=== PATIENT | male | born 1990 | race African-American/Black ===

== ENCOUNTER 2020-12-20 17:53 | Inpatient (IN) | payer MEDICAID ==
[~2020-12-20] VITALS: Ht 182.9 cm; Wt 72.6 kg
[2020-12-20] MEDS ORDERED: IV NS 0.9% 1,000 ML BAG IV ONE (18:30)
[2020-12-20 18:58] LABS: BASOPHILS % (AUTO) 0.2 % (0.0-2.0); EOSINOPHILS % (AUTO) 0.1 % (0.0-6.0); HEMATOCRIT 51 % (39-51); HEMOGLOBIN 16.5 g/dL (13.5-17.5); LYMPHOCYTES # (AUTO) 0.6 /CMM (0.8-4.8); MEAN CORPUSCULAR HGB CONC 32 g/dl (31.0-36.0); MEAN CORPUSCULAR VOLUME 84 fL (80-96); MONOCYTES # (AUTO) 1.3 /CMM (0.1-1.30); MONOCYTES % (AUTO) 6.8 % (2.0-12.0); NEUTROPHILS # (AUTO) 17.6 /CMM (1.8-8.9); NEUTROPHILS % (AUTO) 89.9 % (43.0-81.0); PLATELET COUNT (AUTO) 353 /CMM (150-450); RED BLOOD CELL COUNT(AUTO) 6.06 MIL/uL (4.5-6.0); WHITE BLOOD COUNT (AUTO) 19.6 K/uL (4.3-11.0)
[2020-12-20] MEDS ORDERED: INSU100V37 SQ (19:02)
[2020-12-20] MEDS ORDERED: INSU100V11 SQ (19:02)
[2020-12-20 19:24] LABS: BILIRUBIN,URINE NEGATIVE (NEGATIVE); COLOR,URINE YELLOW (YELLOW); LEUKOCYTE ESTERASE ,URINE NEGATIVE (NEGATIVE); NITRITE, URINE NEGATIVE (NEGATIVE); PH,URINE 5.5 (5.0-8.0); PROTEIN,URINE 30 mg/dl (NEGATIVE); UGLUCOSE 500 MG/DL mg/dL (NEGATIVE); UROBILINOGEN,URINE 0.2 EU/dL (0.2)
[2020-12-20 19:30] LABS: CALCIUM, SERUM 10.2 mg/dL (8.5-10.1); POTASSIUM 5.5 mmol/L (3.5-5.1)
[2020-12-20 19:35] LABS: BACTERIA,URINE B /HPF (None Seen); SQUAMOUS EPITHELIAL CELL,UR 0-2 /HPF (None Seen); WBC,URINE 0-2 /HPF (0-3)
[2020-12-20 19:36] LABS: ALBUMIN 5.1 g/dL (3.4-5.0); BILIRUBIN,DIRECT 0.2 mg/dL (0.0-0.2); BILIRUBIN,TOTAL 0.6 mg/dL (0.2-1.0); TOTAL PROTEIN, SERUM 9.7 g/dL (6.4-8.2)
--- NOTE | 2020-12-20 19:49 | NUR ---
ER TALKING TO DR. FORD REGARDING PT ADMISSION.
[2020-12-20 19:55] LABS: BAND % (MANUAL) 4 % (0.0-5.0); LYMPHOCYTES % (MANUAL) 8 % (16-48); MONOCYTES % (MANUAL) 11 % (0-11.0); NEUTROPHILS % (MANUAL) 76 (42-76); REACTIVE LYMPHOCYTES 1 % (0-0)
[2020-12-20] MEDS ORDERED: INSULIN REGULAR, HUMAN 100 UNIT/ML 10 ML VIAL SQ ONE (20:00)
[2020-12-20] MEDS ORDERED: INSULIN REGULAR, HUMAN 100 UNIT/ML 10 ML VIAL ONE (20:07)
--- NOTE | 2020-12-20 20:14 | NUR ---
Jose torre in [facility] - 12/20/20 at 2030 by PHILLIP TELE [id number]
--- NOTE | 2020-12-20 20:30 | NUR ---
TELE 315-2
--- NOTE | 2020-12-20 20:44 | NUR ---
REPORT CALLED TO LANDSCAPE TECHNICIAN MYRA. WILL TRANSPORT PT VIA ACLS PROTOCOL TO ROOM 315-2
--- NOTE | 2020-12-20 21:10 | NUR ---
pt transported to unit on [facility] with emt and rn at bedside w/ acls protocol. nad noted during transport. pt ambulated to bed from [facility]
[2020-12-20 21:15] VITALS: BP 155/67
--- NOTE | 2020-12-20 22:15 | NUR ---
RN NOTES [place] ARRIVED TO UNIT VIA GURNEY PT ABLE TO STAND UP AND WALK TO BED PT HAS STEADY GAIT. PT ALERT AND ORIENTED X4 NO PAIN OF DISCOMFORT VISIBLE OR REPORTED AT THIS TIME. PT ON ROOM AIR TOLERATING WELL. PT IS WARM AND DRY TO THE TOUCH NO SIGNS OF DISCOLORATION VISIBLE. PT ORIENTED TO ROOM AND UNIT. ALL PT NEEDS MET AT THIS TIME WILL CONTINUE TO MONITOR. SFAETY MEASURES FOLLOWED AT ALL TIMES.
[2020-12-20] MEDS ORDERED: Z GUARD REMEDY 2 OZ OINT TP PRN (22:30)
[2020-12-20] MEDS ORDERED: HYDROCODONE/APAP 5/325MG TABLET PO PRN (22:30)
[2020-12-20] MEDS ORDERED: MAGNESIUM HYDROXIDE 30 ML UDC PO PRN (22:30)
[2020-12-20] MEDS ORDERED: ZOLPIDEM TARTRATE 5 MG TABLET PO PRN (22:30)
[2020-12-20] MEDS ORDERED: INSULIN DEGLUDEC 20 UNIT SQ SCH (22:30)
[2020-12-20] MEDS ORDERED: ONDANSETRON HCL/PF 4 MG/2 ML VIAL IVP PRN (22:30)
[2020-12-20] MEDS ORDERED: ACETAMINOPHEN 325 MG TABLET PO PRN (22:30)
[2020-12-20] MEDS ORDERED: MAG HYDROX/AL HYDROX/SIMETH 30 ML UDC PO PRN (22:30)
[2020-12-20] MEDS: IV NS 0.9% 1,000 ML IV PRN (22:36)
[2020-12-21] VITALS: BP 132/70
[2020-12-21] MEDS ORDERED: INSULIN GLARGINE, 100 UNIT/ML CARTRIDGE SQ SCH (01:30)
[2020-12-21] MEDS ORDERED: DEXTROSE 50%-WATER 50 ML DISP.SYRIN IV PRN (02:00)
[2020-12-21 04:00] VITALS: BP 111/55
[2020-12-21] MEDS: BLOOD SUGAR DIAGNOSTIC 1 EACH STRIP IN SCH ×5 (05:04→21:21)
[2020-12-21] MEDS: INSULIN REGULAR, HUMAN 100 UNIT/ML 3 ML VIAL SQ PRN ×2 (05:07→12:19)
--- NOTE | 2020-12-21 06:37 | NUR ---
RN NOTES PT ALERT AND ORIENTED X4 NO PAIN OF DISCOMFORT VISIBLE OR REPORTED AT THIS TIME. PT ON ROOM AIR TOLERATING WELL. PT IS WARM AND DRY TO THE TOUCH NO SIGNS OF DISCOLORATION VISIBLE. PT ORIENTED TO ROOM AND UNIT. ALL PT NEEDS MET AT THIS TIME WILL ENDORSE CARE TO DAY SHIFT. SAFETY MEASURES FOLLOWED AT ALL TIMES.
[2020-12-21 07:07] LABS: BASOPHILS # (AUTO) 0.1 /CMM (0.0-0.2); BASOPHILS % (AUTO) 0.5 % (0.0-2.0); HEMATOCRIT 45 % (39-51); HEMOGLOBIN 15.4 g/dL (13.5-17.5); LYMPHOCYTES # (AUTO) 1.1 /CMM (0.8-4.8); LYMPHOCYTES % (AUTO) 6.9 % (20.0-44.0); MEAN CORPUSCULAR HGB CONC 34 g/dl (31.0-36.0); MEAN CORPUSCULAR VOLUME 82 fL (80-96); MONOCYTES # (AUTO) 1.8 /CMM (0.1-1.30); NEUTROPHILS # (AUTO) 13.4 /CMM (1.8-8.9); NEUTROPHILS % (AUTO) 81.6 % (43.0-81.0); PLATELET COUNT (AUTO) 307 /CMM (150-450); RED BLOOD CELL COUNT(AUTO) 5.52 MIL/uL (4.5-6.0); WHITE BLOOD COUNT (AUTO) 16.5 K/uL (4.3-11.0)
[2020-12-21] MEDS: PANTOPRAZOLE 40 MG TABLET.DR PO SCH (07:30)
[2020-12-21 07:43] LABS: THYROID STIMULATING HORMONE 0.039 uIU/mL (0.358-3.74)
[2020-12-21] MEDS: IV NS 0.9% 1,000 ML IV PRN ×2 (07:51→21:44)
[2020-12-21 07:55] LABS: CALCIUM, SERUM 9.4 mg/dL (8.5-10.1); CREATININE 1.5 mg/dL (0.6-1.3); MAGNESIUM 2.7 mg/dL (1.8-2.4); PHOSPHORUS 4.3 mg/dL (2.5-4.9); POTASSIUM 4.6 mmol/L (3.5-5.1)
[2020-12-21 08:00] VITALS: BP 131/76
[2020-12-21] MEDS: INSULIN GLARGINE, 100 UNIT/ML CARTRIDGE SQ SCH ×2 (09:28→21:45)
[2020-12-21 12:00] VITALS: BP 111/50
[2020-12-21 13:39] LABS: CALCIUM, SERUM 9.5 mg/dL (8.5-10.1); CREATININE 1.5 mg/dL (0.6-1.3); POTASSIUM 3.9 mmol/L (3.5-5.1)
[2020-12-21 14:30] LABS: CALCIUM, SERUM 9.1 mg/dL (8.5-10.1); CREATININE 1.5 mg/dL (0.6-1.3); POTASSIUM 3.8 mmol/L (3.5-5.1)
[2020-12-21 16:00] VITALS: BP 96/52
[2020-12-21 18:26] LABS: CREATININE 1.5 mg/dL (0.6-1.3); POTASSIUM 3.7 mmol/L (3.5-5.1)
[2020-12-21] MEDS: INSULIN ASPART/LISPRO 100 UNIT/ML CARTRIDGE SQ SCH (18:26)
--- NOTE | 2020-12-21 19:30 | NUR ---
MS/RN OPENING NOTES RECEIVED PATIENT IN BED RESTING. PATIENT IS ALERT AND ORIENTED X 4. PATIENT BREATHING IS EVEN AND UNLABORED. NO SIGNS OF SOB OR RESPIRATORY DISTRESS NOTED. PATIENT STATES NO PAIN AT THIS TIME. SAFETY MEASURES ARE IN PLACE, BED IS LOCKED AND PLACED IN THE LOW POSITION, SIDE RAILS UP X 2, CALL LIGHT IS WITHIN REACH. WILL CONTINUE WITH PATIENT PLAN OF CARE.
[2020-12-21 20:00] VITALS: BP 116/61
[2020-12-22] MEDS: BLOOD SUGAR DIAGNOSTIC 1 EACH STRIP IN SCH ×4 (01:19→13:30)
[2020-12-22] MEDS: INSULIN REGULAR, HUMAN 100 UNIT/ML 3 ML VIAL SQ PRN ×3 (01:22→13:30)
[2020-12-22] MEDS: IV NS 0.9% 1,000 ML IV PRN (05:25)
--- NOTE | 2020-12-22 06:10 | NUR ---
TELE/RN CLOSING NOTES PATIENT IN BED RESTING. PATIENT IS ALERT AND ORIENTED X 4. PATIENT BREATHING IS EVEN AND UNLABORED. NO SIGNS OF SOB OR RESPIRATORY DISTRESS NOTED. PATIENT STATES NO PAIN AT THIS TIME. TELE READING NSR 90S. ALL NEEDS HAVE BEEN MET DURING SHIFT. SAFETY MEASURES ARE IN PLACE, BED IS LOCKED AND PLACED IN THE LOW POSITION, SIDE RAILS UP X 2, CALL LIGHT IS WITHIN REACH. WILL ENDORSE CARE TO DAY SHIFT NURSE.
[2020-12-22 07:41] LABS: CALCIUM, SERUM 8.4 mg/dL (8.5-10.1); CREATININE 1.1 mg/dL (0.6-1.3); POTASSIUM 3.3 mmol/L (3.5-5.1)
[2020-12-22 08:00] VITALS: BP 136/66
[2020-12-22] MEDS ORDERED: POTASSIUM CHLORIDE 20 MEQ TAB.PRT.SR PO ONE (08:30)
[2020-12-22] MEDS: PANTOPRAZOLE 40 MG TABLET.DR PO SCH (09:06)
[2020-12-22] MEDS: INSULIN ASPART/LISPRO 100 UNIT/ML CARTRIDGE SQ SCH (09:29)
[2020-12-22] MEDS ORDERED: INSU100I4 SQ (11:15)
[2020-12-22] MEDS ORDERED: BLOO1EAC70 MC (11:15)
[2020-12-22] MEDS ORDERED: LANC-576 MC (11:15)
[2020-12-22] MEDS ORDERED: INSU100I24 SQ (11:15)
[2020-12-22] MEDS ORDERED: SYRI1DIS86 MC (11:15)
[2020-12-22] MEDS ORDERED: LANC1COM2 MC (11:15)
--- NOTE | 2020-12-22 14:33 | NUR ---
MS COMMUNITY AFFAIRS DIRECTOR NOTE PATIENT IS IN NO ACUTE DISTRESS. PATIENT I MEDICALLY STABLE TO BE DISCHARGED. PATIENT NEEDS WERE ADDRESSED DURING THE STAY. DISCHARGE INSTRUCTIONS PROVIDED, PATIENT VERBALIZED UNDERSTANDING. BELONGING LIST SIGNED. PATIENTS IV LINE AND ID BAND REMOVED. PATIENT IS BEING PICKED UP BY HIS FIANCE. MD IS AWARE OF DISCHARGE.
--- NOTE | 2020-12-22 14:33 | NUR ---
MS RN OPENING NOTE PATIENT IS IN BED RESTING, PATIENT IS IN NO ACUTE DISTRESS. PATIENT IS ON ROOM AIR, TOLERATING WELL, NO SOB NOTED. PATIENT IS AMBULATORY. SAFETY PRECAUTIONS ARE ON, BED IS LOCKED IN THE LOWEST POSITION, SIDE RAILS ARE UP, CALL LIGHT WITHIN REACH. WILL CONTINUE TO MONITOR CLOSELY.
== END 2020-12-22 14:20 | disposition home or self-care (01) | DRG 420 ==
LOC: ER 17:57 → TELE 20:18 → MED 12-21 14:02
PROVIDERS: ADMIT Student in an Organized Health Care Education/Training Program; ATTEND Nurse Practitioner Acute Care
DX: E10.10 Type 1 diabetes mellitus with ketoacidosis without coma (principal); N17.0 Acute kidney failure with tubular necrosis; D72.829 Elevated white blood cell count, unspecified; E86.0 Dehydration; E83.52 Hypercalcemia; E87.5 Hyperkalemia; E83.41 Hypermagnesemia; E86.1 Hypovolemia; Z79.4 Long term (current) use of insulin; Z20.822 Contact with and (suspected) exposure to COVID-19; R74.01 Elevation of levels of liver transaminase levels
CPT/HCPCS: 36415; 71046; 80048-TC; 80061-TC; 80076-TC; 81001; 82962-TC; 83690-TC; 83735-TC; 84100-TC; 84443-TC; 84481; 85025-TC; 87081-TC; C9803; G0378; J1815; J2405; J7030